=== PATIENT | female | born 1990 | race Caucasian/White ===

== ENCOUNTER 2017-11-16 22:43 | Emergency (ER) | payer SELFPAY ==
--- NOTE | 2017-11-16 23:00 | NUR ---
CALLED PT IN [facility], NO RESPONSE
--- NOTE | 2017-11-16 23:38 | NUR ---
CALLED PT IN [facility], NO RESPONSE
--- NOTE | 2017-11-17 | NUR ---
CALED PT IN [facility], NO RESPONSE
--- NOTE | 2017-11-17 00:54 | NUR ---
CALLED PT IN [facility], NO RESPONSE
== END 2017-11-17 01:02 | disposition left against medical advice (07) ==
LOC: ER 22:44
DX: Z53.21 Procedure and treatment not carried out due to patient leaving prior to being seen by health care provider (principal)

== ENCOUNTER 2018-10-30 21:38 | Emergency (ER) | payer SELFPAY ==
--- NOTE | 2018-10-30 22:25 | NUR ---
CALLED PT IN WAITING ROOM 3X. NO ANSWER. WILL FOLLOW UP
--- NOTE | 2018-10-30 22:45 | NUR ---
CALLED PT TO BE TRIAGED 3X. NO ANSWER.
== END 2018-10-30 23:18 | disposition left against medical advice (07) ==
LOC: ER 21:40
DX: Z53.21 Procedure and treatment not carried out due to patient leaving prior to being seen by health care provider (principal)